=== PATIENT | female | born 1965 | race Caucasian/White ===

== ENCOUNTER 2017-01-03 15:40 | Emergency (ER) | payer MEDICAID ==
[2017-01-03 16:07] VITALS: BP 123/73; PULSE 85; RESP 16; TEMP 98.1; O2SAT 95
== END 2017-01-03 16:30 | disposition left against medical advice (07) ==
DX: Z53.21 Procedure and treatment not carried out due to patient leaving prior to being seen by health care provider (principal)

== ENCOUNTER 2017-01-12 15:15 | Emergency (ER) | payer MEDICAID ==
[2017-01-12 15:21] VITALS: TEMP 97.9; O2SAT 94
--- NOTE | 2017-01-12 15:42 | EDPHY ---
H & P Time Seen by Provider: 01/12/17 15:25 HPI/ROS: CHIEF COMPLAINT: Leg swelling HISTORY OF PRESENT ILLNESS: 51-year-old female with a history of fibromyalgia and IBS presents with foot swelling. Onset of bilateral foot swelling few days ago. She recently moved to [place] and has been walking more than usual. She was recently placed on gabapentin for chronic pain. She was just seen by GI and did not mention the leg swelling because it wasn't bothering her. No associated symptoms; no shortness of breath, leg pain or chest pain. REVIEW OF SYSTEMS: Constitutional: No fever, no chills Eyes: No visual changes ENT: No sore throat Respiratory: No cough, no shortness of breath Cardiac: No chest pain Gastrointestinal: No nausea, no vomiting Genitourinary: no dysuria Skin: No rash Neurological: No headache, no weakness Psychiatric: No depression Past Medical/Surgical History: Fibromyalgia Irritable bowel syndrome Chronic pain Social History: Recently moved from [place] Smoking Status: Current every day smoker Physical Exam: General Appearance: Alert, no distress Eyes: Pupils equal and round, no conjunctival pallor or injection ENT, Mouth: Mucous membranes moist Neck: Normal inspection Respiratory: Lungs are clear to auscultation Cardiovascular: Regular rate and rhythm Gastrointestinal: Abdomen is soft and nontender Neurological: A&O, nonfocal, normal gait Skin: Warm and dry Extremities: trace bilateral pedal edema extending to the ankle, no calf tenderness Psychiatric: Mood and affect normal Constitutional: Initial Vital Signs Temperature (C) 36.6 C 01/12/17 15:18 Heart Rate 88 01/12/17 15:18 Respiratory Rate 18 01/12/17 15:18 Blood Pressure 110/95 H 01/12/17 15:18 O2 Sat (%) 94 01/12/17 15:18 O2 Delivery Mode Room Air Allergies/Adverse Reactions: No Known Allergies Allergy (Verified 01/12/17 15:18) Home Medications: Medication Instructions Recorded AMITRIPTYLINE HCL [Amitriptyline 01/12/17 100 mg] Atorvastatin Calcium [Lipitor 40 40 mg PO 01/12/17 mg (*)] Furosemide [Lasix 20 MG (*)] 20 mg PO DAILY PRN #5 tab 01/12/17 Gabapentin [Neurontin 300 MG (*)] 300 mg PO 01/12/17 Lisinopril [Zestril 10 mg (*)] 10 mg PO 01/12/17 MILNACIPRAN HCL [Savella 50 mg] 50 mg PO 01/12/17 Ondansetron Odt [Zofran Odt 4 mg 4 mg PO Q4 01/12/17 (*)] PARoxetine HCL [Paxil 20mg (*)] 20 mg PO 01/12/17 Ranitidine HCl [Zantac] 300 mg PO 01/12/17 oxyCODONE/APAP 5/325 [Percocet 1 tab PO 01/12/17 5/325 (*)] Medical Decision Making ED Course/Re-evaluation: This patient presents with slight pedal edema, most likely secondary to increased activity. She will use compression stockings. I have given her a prescription for Lasix to use as needed for leg swelling. No evidence of cardiac etiology for swelling and I do not feel that testing is necessary today. Departure - Departure Disposition: Home, Routine, Self-Care Clinical Impression: Pedal edema Condition: Good Instructions: Leg Edema (ED) Additional Instructions: Wear compression stockings during the day. You may take them off at night. Keep your legs elevated whenever possible. Use Lasix needed in the morning to decrease the swelling. Referrals: KAROL MOSQUERA [Other] - As per Instructions Lottie Elam MD [Medical Doctor] - 3-4 days, if not improved Prescriptions: Furosemide [Lasix 20 MG (*)] 20 mg PO DAILY PRN #5 tab PRN Reason: leg swelling
[2017-01-12 15:49] VITALS: BP 132/81; PULSE 87; RESP 20
== END 2017-01-12 15:52 | disposition home or self-care (01) ==
DX: R60.0 Localized edema (principal); F17.200 Nicotine dependence, unspecified, uncomplicated

== ENCOUNTER → 2017-02-27 | Outpatient (CLI) | payer MEDICAID | LOC: FIMAGING 09:12 | PROVIDERS: ATTEND Internal Medicine | DX: M79.671 Pain in right foot (principal); R93.6 Abnormal findings on diagnostic imaging of limbs ==

== ENCOUNTER → 2017-05-26 | Outpatient (CLI) | payer MEDICAID | LOC: FIMAGING 15:47 | PROVIDERS: ATTEND Internal Medicine | DX: M79.641 Pain in right hand (principal); M79.642 Pain in left hand ==

== ENCOUNTER 2017-06-21 12:43 | Emergency (ER) | payer MEDICAID ==
--- NOTE | 2017-06-21 13:39 | EDPHY ---
H & P Stated Complaint: shaky/trmors and suh x 2 days Time Seen by Provider: 06/21/17 13:38 - Personal History LMP (Females 10-55): Post Menopausal Current Tetanus/Diphtheria Vaccine: Yes - Medical/Surgical History Hx Asthma: No Hx Chronic Respiratory Disease: No Hx Diabetes: No Hx Cardiac Disease: Yes Hx Renal Disease: No Hx Cirrhosis: No Hx Alcoholism: No Hx HIV/AIDS: No Hx Splenectomy or Spleen Trauma: No Other PMH: fibromyalgia. HTN. cholesterol. neuropathy - Social History Smoking Status: Current every day smoker Constitutional: Initial Vital Signs Temperature (C) 36.9 C 06/21/17 12:50 Heart Rate 92 06/21/17 12:50 Respiratory Rate 18 06/21/17 12:50 Blood Pressure 226/104 H 06/21/17 12:50 O2 Sat (%) 91 L 06/21/17 12:50 O2 Delivery Mode Room Air Allergies/Adverse Reactions: No Known Allergies Allergy (Verified 06/21/17 12:48) Home Medications: Medication Instructions Recorded AMITRIPTYLINE HCL [Amitriptyline 01/12/17 100 mg] Atorvastatin Calcium [Lipitor 40 40 mg PO 01/12/17 mg (*)] Gabapentin [Neurontin 300 MG (*)] 300 mg PO 01/12/17 Lisinopril [Zestril 10 mg (*)] 10 mg PO 01/12/17 MILNACIPRAN HCL [Savella 50 mg] 50 mg PO 01/12/17 Ondansetron Odt [Zofran Odt 4 mg 4 mg PO Q4 01/12/17 (*)] PARoxetine HCL [Paxil 20mg (*)] 20 mg PO 01/12/17 Ranitidine HCl [Zantac] 300 mg PO 01/12/17 oxyCODONE/APAP 5/325 [Percocet 1 tab PO 01/12/17 5/325 (*)] Medical Decision Making ED Course/Re-evaluation: CHIEF COMPLAINT: Body twitching HISTORY OF PRESENT ILLNESS: The patient is an anxious 51 y/o female arriving with her sister and dog who complains of worsening body twitching for the last 2 days. She has a history of depression and chronic pain, and apparently 4-5 months ago she was expelled from her pain clinic after testing positive for Crystal Meth. She has since established care with a new pain specialist, who believes she is taking too much Gabapentin and is now in withdrawal. The patient complains of uncontrollable flapping hands throughout the day. Her sister thinks her current symptoms may be related to misuse of her medication. Denies headache, weakness, paresthesia, vision changes, or other symptoms. REVIEW OF SYSTEMS: A 10 point review of systems was performed and is negative with the exception of the elements mentioned in the history of present illness. PHYSICAL EXAM: HR, BP, O2 Sat, RR. Temp noted General Appearance: Anxious, voluntarily flailing hands but intermittently petting her dog, alert, well hydrated. Head: Atraumatic without scalp tenderness or obvious injury Eyes: Pupils equal, round, reactive to light and accommodation, EOMI, no trauma , no injection. Nose: Atraumatic, no rhinorrhea, clear. Throat: There is no erythema or exudates, no lesions, normal tonsils, mucus membranes moist. Neck: Supple, nontender, no lymphadenopathy. Respiratory: No retractions, no distress, no wheezes, and no accessory muscle use. Lungs are clear to auscultation bilaterally. Cardiovascular: Regular rate and rhythm, no murmurs, rubs, or gallops. Good capillary refill all extremities. Gastrointestinal: Abdomen is soft, nontender, non-distended, no masses, no rebound, no guarding, no peritoneal signs. Musculoskeletal: Normal active ROM of all extremities, atraumatic. Neurological: Voluntary flapping movements of both hands that extinguishes with distraction. Alert, anxious, and interactive. Able to preform finger-to- nose accurately, normal gait, face symmetric. Skin: No rashes, good turgor, no nodules on palpation. Past medical history: Fibromyalgia, depression, chronic pain Past surgical history: Noncontributory Family history: Noncontributory Social history: Smoker, sister and identification and records commander dog at bedside, history of meth abuse, has been living with her sister in [place] since November. DIFFERENTIAL DIAGNOSIS: The differential diagnosis for the patient's twitching included but was not limited to psychogenic disorder, medication misuse, medication withdrawal, intoxicant, peripheral causes, electrolyte abnormalities and dehydration, atypical causes like migraine syndrome, hypoglycemia, infectious process, head injury, neurologic process, anemia. MEDICAL DECISION MAKING: The patient is an anxious 51 y/o female who presents with bilateral flapping of her arms. Her dynamic and purposeful motor movements seem to be psychogenic and do not fit any neurologic pattern. The voluntary flapping extinguishes with distraction and her neurologic exam is otherwise normal. Her presentation is consistent with a psychosomatic condition. When she becomes verbally distressed, the flapping becomes worse. Plan for IV, 1mg IV Ativan, and basic labs. Labs are unremarkable. Patient is feeling improved after Ativan, is walking normally, and her flailing has resolved. Her neurological exam is normal at this time. She and her sister feel comfortable going home and following up with her primary care provider this week. Return precautions given. - Data Points Laboratory Results: Laboratory Results 06/21/17 14:10 06/21/17 14:10 06/21/17 06/21/17 14:10 14:10 WBC 7.30 10^3/uL 10^3/uL (3.80-9.50) RBC 4.52 10^6/uL 10^6/uL (4.18-5.33) Hgb 13.7 g/dL g/dL (12.6-16.3) Hct 42.4 % % (38.0-47.0) MCV 93.8 fL fL (81.5-99.8) MCH 30.3 pg pg (27.9-34.1) MCHC 32.3 g/dL L g/dL (32.4-36.7) RDW 16.1 % H % (11.5-15.2) Plt Count 233 10^3/uL 10^3/uL (150-400) MPV 10.2 fL fL (8.7-11.7) Neut % (Auto) 72.5 % % (39.3-74.2) Lymph % (Auto) 17.4 % % (15.0-45.0) Dyer % (Auto) 7.5 % % (4.5-13.0) Eos % (Auto) 1.8 % % (0.6-7.6) Baso % (Auto) 0.5 % % (0.3-1.7) Nucleat RBC Rel Count 0.4 % H % (0.0-0.2) Absolute Neuts (auto) 5.29 10^3/uL 10^3/uL (1.70-6.50) Absolute Lymphs (auto) 1.27 10^3/uL 10^3/uL (1.00-3.00) Absolute Monos (auto) 0.55 10^3/uL 10^3/uL (0.30-0.80) Absolute Eos (auto) 0.13 10^3/uL 10^3/uL (0.03-0.40) Absolute Basos (auto) 0.04 10^3/uL 10^3/uL (0.02-0.10) Absolute Nucleated RBC 0.03 10^3/uL H 10^3/uL (0-0.01) Immature Gran % 0.3 % % (0.0-1.1) Immature Gran # 0.02 10^3/uL 10^3/uL (0.00-0.10) Sodium 136 mEq/L mEq/L (134-144) Potassium 4.8 mEq/L mEq/L (3.5-5.2) Chloride 97 mEq/L mEq/L (97-110) Carbon Dioxide 29 mEq/l mEq/l (22-31) Anion Gap 10 mEq/L mEq/L (8-16) BUN 11 mg/dL mg/dL (7-23) Creatinine 0.9 mg/dL mg/dL (0.6-1.0) Estimated GFR > 60 Glucose 92 mg/dL mg/dL (70-100) Calcium 9.2 mg/dL mg/dL (8.5-10.4) Total Bilirubin 0.5 mg/dL mg/dL (0.1-1.4) Conjugated Bilirubin 0.4 mg/dL mg/dL (0.0-0.5) Unconjugated Bilirubin 0.1 mg/dL mg/dL (0.0-1.1) AST 36 IU/L IU/L (14-46) ALT 44 IU/L IU/L (9-52) Alkaline Phosphatase 150 IU/L H IU/L (38-126) Total Protein 7.5 g/dL g/dL (6.3-8.2) Albumin 4.4 g/dL g/dL (3.5-5.0) Lipase 52.0 IU/L IU/L (23-300) Medications Given: Discontinued Medications Lorazepam (Ativan Injection) 1 mg IVP EDNOW ONE Stop: 06/21/17 14:00 Last Admin: 06/21/17 14:20 Dose: 1 mg Departure - Departure Disposition: Home, Routine, Self-Care Clinical Impression: Shakiness Condition: Good Instructions: Tremors (ED) Additional Instructions: 1. Take your Gabapentin as prescribed. 2. Take all of your medications as prescribed. 3. Follow up with your primary care provider for unimproved symptoms. Referrals: Jayde Henriquez MD [Primary Care Provider] - As per Instructions Report Scribed for: Alec Villegas Report Scribed by: Erika Garcia Date of Report: 06/21/17 Time of Report: 13:39
[2017-06-21] MEDS ORDERED: LORazepam 2 MG/ML INJ IVP ONE (13:59)
[2017-06-21 14:15] LABS: % IMMATURE GRANULYOCYTES 0.3 % (0.0-1.1); ABSOLUTE IMMATURE GRANULOCYTES 0.02 10^3/uL (0.00-0.10); ABSOLUTE NRBC COUNT 0.03 10^3/uL (0-0.01); ADD DIFF? NO; ADD MORPH? NO; ADD SCAN? NO; ATYPICAL LYMPHOCYTE FLAG 0 (0-99); FRAGMENT RBC FLAG 0 (0-99); HEMATOCRIT 42.4 % (38.0-47.0); HEMOGLOBIN 13.7 g/dL (12.6-16.3); LEFT SHIFT FLG 0 (0-99); LIPEMIA HEMOLYSIS FLAG 80 (0-99); MEAN CELL HEMOGLOBIN 30.3 pg (27.9-34.1); MEAN CELL HEMOGLOBIN CONCENTR. 32.3 g/dL (32.4-36.7); MEAN CELL VOLUME 93.8 fL (81.5-99.8); MEAN PLATELET VOLUME 10.2 fL (8.7-11.7); NRBC-AUTO% 0.4 % (0.0-0.2); PLATELET CLUMPS FLAG 0 (0-99); PLATELET COUNT 233 10^3/uL (150-400); RED BLOOD CELL COUNT 4.52 10^6/uL (4.18-5.33); RED CELL DISTRIBUTION WIDTH 16.1 % (11.5-15.2)
[2017-06-21 14:26] LABS: ALANINE AMINOTRANSFERASE 44 IU/L (9-52); ALBUMIN 4.4 g/dL (3.5-5.0); ALKALINE PHOSPHATASE 150 IU/L (38-126); ANION GAP 10 mEq/L (8-16); ASPARTATE AMINOTRANSFERASE 36 IU/L (14-46); BILIRUBIN,TOTAL 0.5 mg/dL (0.1-1.4); BILIRUBIN-CONJUGATED 0.4 mg/dL (0.0-0.5); BILIRUBIN-UNCONJUGATED 0.1 mg/dL (0.0-1.1); CALCIUM 9.2 mg/dL (8.5-10.4); CARBON DIOXIDE 29 mEq/l (22-31); CHLORIDE 97 mEq/L (97-110); CREATININE 0.9 mg/dL (0.6-1.0); GLOMERULAR FILTRATION RATE > 60; GLUCOSE 92 mg/dL (70-100); POTASSIUM 4.8 mEq/L (3.5-5.2); SODIUM 136 mEq/L (134-144); TOTAL PROTEIN 7.5 g/dL (6.3-8.2)
[2017-06-21 15:27] VITALS: BP 167/95; PULSE 80; RESP 16; TEMP 99; O2SAT 100
== END 2017-06-21 15:31 | disposition home or self-care (01) ==
DX: R25.1 Tremor, unspecified (principal); I10 Essential (primary) hypertension; F17.200 Nicotine dependence, unspecified, uncomplicated
CPT/HCPCS: 96374; J2060

== ENCOUNTER → 2017-08-19 | Outpatient (CLI) | payer MEDICAID | LOC: FIMAGING 12:24 | DX: M50.30 Other cervical disc degeneration, unspecified cervical region (principal); M89.38 Hypertrophy of bone, other site; M99.71 Connective tissue and disc stenosis of intervertebral foramina of cervical region ==